=== PATIENT | female | born 1990 | race Caucasian/White ===

== ENCOUNTER 2021-12-17 17:53 | Emergency (ER) | payer MEDICAID ==
[~2021-12-17] VITALS: Ht 167.6 cm; Wt 159.0 kg
[2021-12-17] MEDS ORDERED: cloNIDine 0.1 mg tablet PO SCH (21:00)
[2021-12-17 21:09] VITALS: BP 158/109
[2021-12-17] MEDS ORDERED: cloNIDine 0.1 mg tablet PO ONE (21:35)
[2021-12-17] MEDS ORDERED: TRAZ-251 PO (22:37)
== END 2021-12-17 22:45 | disposition home or self-care (01) ==
LOC: ER 17:54
DX: F15.23 Other stimulant dependence with withdrawal (principal); G47.09 Other insomnia
CPT/HCPCS: 70450; 93005; 99284